=== PATIENT | female | born 1960 | race Caucasian/White ===

== ENCOUNTER → 2019-01-31 07:21 | Outpatient (CLI) | payer OTHER | END | disposition home or self-care (01) | LOC: LAB 07:21 | DX: E34.8 Other specified endocrine disorders (principal); N95.1 Menopausal and female climacteric states; N95.8 Other specified menopausal and perimenopausal disorders; M25.50 Pain in unspecified joint; M81.0 Age-related osteoporosis without current pathological fracture; M85.88 Other specified disorders of bone density and structure, other site; G47.00 Insomnia, unspecified; R41.3 Other amnesia; R51 Headache; R53.83 Other fatigue; E28.2 Polycystic ovarian syndrome; E03.8 Other specified hypothyroidism; R31.29 Other microscopic hematuria; R35.0 Frequency of micturition ==

== ENCOUNTER 2019-02-18 12:15 | Outpatient (CLI) | payer OTHER | END 2019-02-18 12:28 | disposition home or self-care (01) | LOC: MAMO-SONO 12:15 | DX: N60.21 Fibroadenosis of right breast (principal); N60.22 Fibroadenosis of left breast; E04.1 Nontoxic single thyroid nodule; Z12.31 Encounter for screening mammogram for malignant neoplasm of breast; Z87.898 Personal history of other specified conditions ==

== ENCOUNTER 2019-03-16 07:16 | Outpatient (CLI) | payer OTHER | END 2019-03-16 07:30 | disposition home or self-care (01) | LOC: LAB 07:16 | DX: E78.89 Other lipoprotein metabolism disorders (principal) ==

== ENCOUNTER 2019-11-28 16:38 | Outpatient (CLI) | payer OTHER | END 2019-11-28 16:43 | disposition home or self-care (01) | LOC: LAB 16:38 | PROVIDERS: ATTEND Physical Medicine & Rehabilitation | DX: Z20.828 Contact with and (suspected) exposure to other viral communicable diseases (principal); Z11.59 Encounter for screening for other viral diseases ==

== ENCOUNTER → 2020-09-14 07:14 | Outpatient (CLI) | payer OTHER | END | disposition home or self-care (01) | LOC: LAB 07:14 | PROVIDERS: ATTEND Family Medicine | DX: E03.9 Hypothyroidism, unspecified (principal); N39.8 Other specified disorders of urinary system; Z12.11 Encounter for screening for malignant neoplasm of colon; I10 Essential (primary) hypertension; E55.9 Vitamin D deficiency, unspecified; D64.9 Anemia, unspecified ==

== ENCOUNTER → 2020-09-21 09:08 | Outpatient (CLI) | payer OTHER | END | disposition home or self-care (01) | LOC: LAB 09:08 | PROVIDERS: ATTEND Family Medicine | DX: N39.8 Other specified disorders of urinary system (principal); Z12.11 Encounter for screening for malignant neoplasm of colon; I10 Essential (primary) hypertension; E55.9 Vitamin D deficiency, unspecified; D64.9 Anemia, unspecified; E03.9 Hypothyroidism, unspecified ==

== ENCOUNTER 2021-05-15 08:16 | Outpatient (CLI) | payer OTHER | END 2021-05-15 08:17 | disposition home or self-care (01) | LOC: SONOGRAMA 08:16 | DX: M25.512 Pain in left shoulder (principal) ==

== ENCOUNTER 2021-08-29 07:40 | Outpatient (CLI) | payer OTHER | END 2021-08-29 07:56 | disposition home or self-care (01) | LOC: LAB 07:40 | PROVIDERS: ATTEND Family Medicine | DX: N39.8 Other specified disorders of urinary system (principal); Z12.11 Encounter for screening for malignant neoplasm of colon; I10 Essential (primary) hypertension; E78.00 Pure hypercholesterolemia, unspecified; E55.9 Vitamin D deficiency, unspecified; E11.9 Type 2 diabetes mellitus without complications; D64.9 Anemia, unspecified; E03.8 Other specified hypothyroidism ==

== ENCOUNTER 2021-09-03 10:13 | Outpatient (CLI) | payer OTHER | END 2021-09-03 10:17 | disposition home or self-care (01) | LOC: LAB 10:13 | PROVIDERS: ATTEND Family Medicine | DX: N39.8 Other specified disorders of urinary system (principal); Z12.11 Encounter for screening for malignant neoplasm of colon; E55.9 Vitamin D deficiency, unspecified; E11.9 Type 2 diabetes mellitus without complications; D64.9 Anemia, unspecified; E03.8 Other specified hypothyroidism ==

== ENCOUNTER 2021-11-13 11:27 | Outpatient (CLI) | payer OTHER | END 2021-11-13 11:35 | disposition home or self-care (01) | LOC: LAB 11:27 | DX: N39.0 Urinary tract infection, site not specified (principal) ==

== ENCOUNTER 2022-04-03 08:01 | Outpatient (CLI) | payer OTHER | END 2022-04-03 09:37 | disposition home or self-care (01) | LOC: RAD 08:01 | DX: M54.2 Cervicalgia (principal); M54.6 Pain in thoracic spine; M54.50 Low back pain, unspecified; M99.05 Segmental and somatic dysfunction of pelvic region ==

== ENCOUNTER 2022-07-21 07:31 | Outpatient (CLI) | payer OTHER | END 2022-07-21 07:42 | disposition home or self-care (01) | LOC: LAB 07:31 | DX: I11.9 Hypertensive heart disease without heart failure (principal); N39.0 Urinary tract infection, site not specified; E03.9 Hypothyroidism, unspecified ==

== ENCOUNTER 2022-07-21 08:24 | Outpatient (CLI) | payer OTHER | END 2022-07-21 08:34 | disposition home or self-care (01) | LOC: MAMO-SONO 08:24 | PROVIDERS: ATTEND Family Medicine | DX: Z12.31 Encounter for screening mammogram for malignant neoplasm of breast (principal) ==

== ENCOUNTER 2022-09-29 13:50 | Outpatient (CLI) | payer OTHER | END 2022-09-29 14:24 | disposition home or self-care (01) | LOC: LAB 13:50 | DX: N39.8 Other specified disorders of urinary system (principal) ==

== ENCOUNTER 2022-12-05 10:27 | Outpatient (CLI) | payer OTHER | END 2022-12-05 10:28 | disposition home or self-care (01) | LOC: LAB 10:27 | PROVIDERS: ATTEND Family Medicine | DX: B34.2 Coronavirus infection, unspecified (principal); A49.3 Mycoplasma infection, unspecified site; J10.00 Influenza due to other identified influenza virus with unspecified type of pneumonia; R05.1 Acute cough; R09.81 Nasal congestion; Z20.828 Contact with and (suspected) exposure to other viral communicable diseases ==

== ENCOUNTER 2022-12-09 11:14 | Outpatient (CLI) | payer OTHER | END 2022-12-09 11:33 | disposition home or self-care (01) | LOC: LAB 11:14 | PROVIDERS: ATTEND Family Medicine | DX: B34.2 Coronavirus infection, unspecified (principal); A49.3 Mycoplasma infection, unspecified site; J10.00 Influenza due to other identified influenza virus with unspecified type of pneumonia; Z20.828 Contact with and (suspected) exposure to other viral communicable diseases; R09.81 Nasal congestion; R05.1 Acute cough ==

== ENCOUNTER 2022-12-15 07:58 | Outpatient (CLI) | payer OTHER | END 2022-12-15 07:59 | disposition home or self-care (01) | LOC: RAD 07:58 | PROVIDERS: ATTEND Family Medicine | DX: J20.9 Acute bronchitis, unspecified (principal) ==

== ENCOUNTER 2023-01-16 14:47 | Outpatient (CLI) | payer OTHER | END 2023-01-16 15:05 | disposition home or self-care (01) | LOC: RAD 14:47 | DX: R05.3 Chronic cough (principal) ==

== ENCOUNTER → 2024-08-12 08:34 | Outpatient (CLI) | payer OTHER ==
[2024-08-12 09:40] LABS: PH,URINE 6.5 (5.0-8.0); URINE APPEARANCE Clear; URINE BILIRRUBIN Negative (NEGATIVE); URINE BLOOD Negative; URINE COLOR Yellow; URINE GLUCOSE Negative (NEGATIVE); URINE KETONE Negative (NEGATIVE); URINE LEUKOCYTE Small; URINE NITRATE Negative; URINE PROTEIN Negative (NEGATIVE); URINE UROBILINOGEN 0.2 E.U./dl
[2024-08-12 09:42] LABS: URINE BACTERIA 25.6 uL (0.0-1933); URINE EPITHELIAL CELLS 2.3 uL (0.0-38.8); URINE WBC 10.1 uL (0.0-23.2)
[2024-08-12 10:03] LABS: URINE RBC 1.6 uL (0.0-20.8)
[2024-08-12 10:11] LABS: EOS # 0.06 (0.04-0.54); EOS % 1.5 % (0.7-7.0); HEMATOCRIT 40.3 % (34.1-44.9); LYMPH # 1.12 (1.18-3.74); LYMPH % 27.4 % (19.3-53.1); MEAN CORPUSCULAR HEMOGLOBIN 30.6 pg (25.6-32.2); MONO # 0.36 (0.24-0.82); MONO % 8.8 % (4.7-12.5); NEUT # 2.51 (1.56-6.13); NEUT % 61.3 % (34.0-71.1); PLATELET COUNT 199 K/uL (163-369); RED BLOOD COUNT 4.57 M/uL (3.93-5.22); RED CELL DISTRIBUTION WIDTH 12.5 % (11.6-14.4)
[2024-08-12 11:11] LABS: CHOL HDL RATIO 2.6 (0-5.0)
[2024-08-12 11:12] LABS: ALBUMIN 3.6 gm/dL (3.4-5.0); BILIRUBIN TOTAL 1.14 mg/dL (0.3-1.2); CALCIUM 8.8 mg/dL (8.5-10.1); CREATININE SERUM 0.76 mg/dL (0.55-1.02); GFR 77.11; POTASSIUM 5.23 mEq/L (3.5-5.1); TOTAL PROTEIN 6.6 gm/dL (6.4-8.2)
== END | disposition home or self-care (01) ==
LOC: LAB 08:34
PROVIDERS: ATTEND Family Medicine
DX: Z12.11 Encounter for screening for malignant neoplasm of colon (principal); E78.00 Pure hypercholesterolemia, unspecified; I10 Essential (primary) hypertension; E55.9 Vitamin D deficiency, unspecified; D64.9 Anemia, unspecified; E11.9 Type 2 diabetes mellitus without complications; N39.8 Other specified disorders of urinary system

== ENCOUNTER → 2024-08-15 12:14 | Outpatient (CLI) | payer OTHER ==
[2024-08-15 13:18] LABS: ob NEGATIVE (NEGATIVE)
== END | disposition home or self-care (01) ==
LOC: LAB 12:14
PROVIDERS: ATTEND Family Medicine
DX: Z12.11 Encounter for screening for malignant neoplasm of colon (principal); E78.00 Pure hypercholesterolemia, unspecified; I10 Essential (primary) hypertension; E55.9 Vitamin D deficiency, unspecified; D64.9 Anemia, unspecified; E11.9 Type 2 diabetes mellitus without complications; N39.8 Other specified disorders of urinary system

== ENCOUNTER 2024-09-13 07:10 | Outpatient (CLI) | payer OTHER | END 2024-09-13 07:14 | disposition home or self-care (01) | LOC: MAMO-SONO 07:10 | PROVIDERS: ATTEND Family Medicine | DX: Z12.31 Encounter for screening mammogram for malignant neoplasm of breast (principal) ==